=== PATIENT | female | born 1930 | race Caucasian/White ===

== ENCOUNTER → 2020-04-18 | Outpatient (CLI) | payer OTHER ==
[~2020-04-18] MED LIST: ACEDIPPM PO; ATOR10 PO; CALCAVITD PO; CALCNI; CEPH500 PO; CHOL10002 PO; Diflucan100 MG PO; LEVSOD50 PO; LISI20 PO; LISINOPRIL 40MG PO; METO50 PO; MULVITMINF PO; OMEP20ER PO; TOCO400 PO; TRIHYD5075 PO; VITAMIN C PO
[2020-04-19 20:10] LABS: Appearance, Urine Clear (Clear); Bilirubin, Urine Neg (Neg); Blood, Urine Neg (Neg); Color, Urine Yellow (P-Yellow); Glucose Qualitative, Urine Neg (Neg); Ketones, Urine Neg (Neg); Leukocyte Esterase, Urine Neg (Neg); Nitrite, Urine Neg (Neg); Protein, Urine Neg (Neg); Specific Gravity, Urine 1.015 (1.003-1.022); Urobilinogen, Urine NORM (Normal); pH, Urine 6.5 (5.0-8.0)
== END | disposition home or self-care (01) ==
LOC: LAB SHORT 19:36 → LAB 19:36
PROVIDERS: Family Medicine
DX: N39.0 Urinary tract infection, site not specified (principal)
CPT/HCPCS: 81003

== ENCOUNTER → 2020-05-27 | Outpatient (CLI) | payer OTHER ==
[~2020-05-27] MED LIST changes: +ACET325 PO; +AMLODIPINE BESYL5 MG PO; +ASPI81CH PO; +ATORVASTATIN CA10 MG PO; +Alph-E-Mixed400 UNIT PO; +BISA10S PR; +CALCITONIN SAL; +CALCIUM 600 +1 EA11 PO; +CALMOSEPTINE TOP; +CIDAFLEX TABLE1 EACH PO; +CORTISONE60 GM TOP; +DOCU100 PO; +DONE5 PO; +Hair, Skin & N1 EACH PO; +IBUP600 PO; +LETR2.5 PO; +LEVSOD25 PO; +LOPE2C PO; +MELATONIN5 M1 PO; +METO50ER PO; +MOBIC15 MG PO; +Milk Of Ma400 MG/5 M PO; +PANT40 PO; +POTA10T PO; +Prednisone10 MG PO; +SILVER SULFADIA TOP; +SODIUM PHOSPHATE PR; +TRIAMTERENE/HCTZ PO; +TUCKS1 EACH TOP; +TUMS500 MG PO; +Vitamin D2000 UNIT PO; +[UNRECOGNIZED DRUG - CODE] PO
== END | disposition home or self-care (01) ==
LOC: LAB 12:54 → LAB SHORT 12:54
DX: E07.9 Disorder of thyroid, unspecified (principal)
CPT/HCPCS: 84443

== ENCOUNTER 2020-05-31 14:31 | Inpatient (IN) | payer OTHER ==
[~2020-05-31] VITALS: Ht 152.4 cm; Wt 53.5 kg
[~2020-05-31 14:31] MED LIST changes: -ACET325 PO; -AMLODIPINE BESYL5 MG PO; -ASPI81CH PO; -ATORVASTATIN CA10 MG PO; -Alph-E-Mixed400 UNIT PO; -BISA10S PR; -CALCITONIN SAL; -CALCIUM 600 +1 EA11 PO; -CALMOSEPTINE TOP; -CIDAFLEX TABLE1 EACH PO; -CORTISONE60 GM TOP; -DOCU100 PO; -DONE5 PO; -Hair, Skin & N1 EACH PO; -IBUP600 PO; -LETR2.5 PO; -LEVSOD25 PO; -LOPE2C PO; -MELATONIN5 M1 PO; -METO50ER PO; -MOBIC15 MG PO; -Milk Of Ma400 MG/5 M PO; -PANT40 PO; -POTA10T PO; -Prednisone10 MG PO; -SILVER SULFADIA TOP; -SODIUM PHOSPHATE PR; -TRIAMTERENE/HCTZ PO; -TUCKS1 EACH TOP; -TUMS500 MG PO; -Vitamin D2000 UNIT PO; -[UNRECOGNIZED DRUG - CODE] PO
[2020-05-31 15:34] LABS: BASOPHILS ABSOLUTE AUTO 0.07 K/mm3 (0.00-0.23); BASOPHILS PERCENT AUTO 1 % (0-2); EOSINOPHILS ABSOLUTE AUTO 0.34 K/mm3 (0.00-0.68); EOSINOPHILS PERCENT AUTO 3 % (0-6); Hematocrit 43.7 % (33.0-51.0); Hemoglobin 13.8 g/dL (11.5-16.0); IMMATURE GRAN PERCENT AUTO 1 % (0-1); LYMPHOCYTES ABSOLUTE AUTO 1.38 K/mm3 (0.84-5.20); LYMPHOCYTES PERCENT AUTO 13 % (21-46); MONOCYTES ABSOLUTE AUTO 1.05 K/mm3 (0.16-1.47); MONOCYTES PERCENT AUTO 10 % (4-13); Mean Corpuscular HGB Conc 31.6 g/dL (31.5-36.5); Mean Corpuscular Volume 98 fL (80-100); NEUTROPHILS ABSOLUTE AUTO 7.58 K/mm3 (1.96-9.15); NEUTROPHILS PERCENT AUTO 72 % (41-73); Platelet Count 387 K/mm3 (150-400); RDW Coefficient Variation 14.6 % (11.7-14.2); RDW Standard Deviation 52.4 fL (35.1-46.3); Red Blood Cell Count 4.45 M/mm3 (3.80-5.20); White Blood Cell Count 10.52 K/mm3 (4.00-11.30)
[2020-05-31 15:41] LABS: Albumin, Blood 3.4 g/dL (3.4-5.0); Bilirubin, Total 0.4 mg/dL (0.1-1.0); Bun/Creatinine Ratio 32.1 (12.0-20.0); Calcium, Blood 10.3 mg/dL (8.5-10.1); Creatinine, Blood 1.59 mg/dL (0.40-1.00); Globulin, Blood 3.4 g/dL (2.2-4.0); Potassium, Blood 4.2 mmol/L (3.5-5.5); Total Protein, Blood 6.8 g/dL (6.4-8.2)
[2020-05-31] MEDS ORDERED: ASPI81CH PO (20:01)
[2020-05-31] MEDS ORDERED: AMLODIPINE BESYL5 MG PO (20:01)
[2020-05-31 20:03] LABS: Source, Urine Clean Catch
[2020-05-31 20:09] LABS: Appearance, Urine Cloudy (Clear); Bilirubin, Urine Neg (Neg); Blood, Urine 5+ (Neg); Color, Urine Brown (P-Yellow); Glucose Qualitative, Urine Neg (Neg); Ketones, Urine 1+ (Neg); Leukocyte Esterase, Urine 2+ (Neg); Nitrite, Urine Neg (Neg); Protein, Urine 2+ (Neg); Specific Gravity, Urine 1.015 (1.003-1.022); Urobilinogen, Urine 1+ (Normal)
[2020-05-31] MEDS ORDERED: ATORVASTATIN CA10 MG PO (20:20)
[2020-05-31] MEDS ORDERED: CALCIUM 600 +1 EA11 PO (20:21)
[2020-05-31] MEDS ORDERED: CALCITONIN SAL (20:21)
[2020-05-31] MEDS ORDERED: DONE5 PO (20:22)
[2020-05-31] MEDS ORDERED: LETR2.5 PO (20:22)
[2020-05-31 20:23] LABS: Bacteria Many /hpf; Hyaline Casts 0-2 /lpf (0-2); Squamous Epithelial Cells Few /hpf (Few)
[2020-05-31] MEDS ORDERED: METO50ER PO (20:23)
[2020-05-31] MEDS ORDERED: MOBIC15 MG PO (20:23)
[2020-05-31] MEDS ORDERED: LEVSOD25 PO (20:23)
[2020-05-31] MEDS ORDERED: PANT40 PO (20:23)
[2020-05-31] MEDS ORDERED: Hair, Skin & N1 EACH PO (20:23)
[2020-05-31] MEDS ORDERED: MELATONIN5 M1 PO (20:23)
[2020-05-31] MEDS ORDERED: Prednisone10 MG PO (20:24)
[2020-05-31] MEDS ORDERED: POTA10T PO (20:24)
[2020-05-31] MEDS ORDERED: Vitamin D2000 UNIT PO (20:26)
[2020-05-31] MEDS ORDERED: [UNRECOGNIZED DRUG - CODE] PO (20:26)
[2020-05-31] MEDS ORDERED: Alph-E-Mixed400 UNIT PO (20:27)
--- NOTE | 2020-06-01 01:46 | NUR ---
0017 PT ARRIVE TO ROOM FROM ER VIA MAIDA IN STABLE CONDITION. PT REPORTS BACK PAIN, WILL GIVE TYLENOL AND EVAL FOR EFFECT. PT REPORTS NAUSEA, NO NAUSE MEDS ORDERED AT THIS TIME, WILL GET SOMETHING FOR NAUSEA FOR HER AND EVAL FOR EFFECT. PT HAS SMALL SORE ON BOTTOM, TOOK PHOTO, APPLIED DRESSING. PT REPORTS SOB, ON RA AT 94%. NO OTHER APPARENT SIGNS OF DISTRESS. CALL LIGHT IS IN REACH.
--- NOTE | 2020-06-01 01:51 | NUR ---
PT LYING IN BED, AWAKE, NO APPARENT SIGNS OF DISTRESS. CALL LIGHT IS IN REACH. BED ALARM IS ON.
[2020-06-01] MEDS ORDERED: CIDAFLEX TABLE1 EACH PO (03:35)
[2020-06-01] MEDS ORDERED: TRIAMTERENE/HCTZ PO (03:39)
[2020-06-01] MEDS ORDERED: ACET325 PO (03:42)
[2020-06-01] MEDS ORDERED: BISA10S PR (03:42)
[2020-06-01] MEDS ORDERED: TUMS500 MG PO (03:43)
[2020-06-01] MEDS ORDERED: DOCU100 PO (03:43)
[2020-06-01] MEDS ORDERED: LOPE2C PO (03:44)
[2020-06-01] MEDS ORDERED: IBUP600 PO (03:44)
[2020-06-01] MEDS ORDERED: Milk Of Ma400 MG/5 M PO (03:45)
[2020-06-01] MEDS ORDERED: SODIUM PHOSPHATE PR (03:47)
[2020-06-01] MEDS ORDERED: CALMOSEPTINE TOP (03:48)
[2020-06-01] MEDS ORDERED: TUCKS1 EACH TOP (03:48)
[2020-06-01] MEDS ORDERED: CORTISONE60 GM TOP (03:49)
[2020-06-01] MEDS ORDERED: SILVER SULFADIA TOP (03:50)
--- NOTE | 2020-06-01 04:23 | NUR ---
PT LYING IN BED, EYES CLOSED, APPEARS TO BE RESTING. BREATHING IS EVEN, UNLABORED. NO APPARENT SIGNS OF DISTRESS. CALL LIGHT IS IN REACH.
--- NOTE | 2020-06-01 04:24 | NUR ---
PT IS AAO X 1-2, ON RA. REPORTS BACK PAIN, GOT TYLENOL X 1, REPORTS NAUSEA, GOT ZOFRAN X 1. HAS SMALL SORE ON BOTTOM WITH MEPLEX DRESSING, PHOTOS TAKEN. ANTIEMBOLIC STOCKINGS ARE ON.
[2020-06-01 05:10] LABS: BASOPHILS ABSOLUTE AUTO 0.03 K/mm3 (0.00-0.23); BASOPHILS PERCENT AUTO 0 % (0-2); EOSINOPHILS ABSOLUTE AUTO 0.03 K/mm3 (0.00-0.68); EOSINOPHILS PERCENT AUTO 0 % (0-6); Hematocrit 36.9 % (33.0-51.0); Hemoglobin 11.5 g/dL (11.5-16.0); IMMATURE GRAN ABSOLUTE AUTO 0.08 K/mm3 (0.00-0.10); IMMATURE GRAN PERCENT AUTO 1 % (0-1); LYMPHOCYTES ABSOLUTE AUTO 0.37 K/mm3 (0.84-5.20); LYMPHOCYTES PERCENT AUTO 4 % (21-46); MONOCYTES PERCENT AUTO 7 % (4-13); Mean Corpuscular HGB 31.1 pg (26.0-34.0); Mean Corpuscular HGB Conc 31.2 g/dL (31.5-36.5); Mean Corpuscular Volume 100 fL (80-100); NEUTROPHILS ABSOLUTE AUTO 8.19 K/mm3 (1.96-9.15); NEUTROPHILS PERCENT AUTO 87 % (41-73); Platelet Count 305 K/mm3 (150-400); RDW Coefficient Variation 14.4 % (11.7-14.2); RDW Standard Deviation 52.4 fL (35.1-46.3)
[2020-06-01 05:46] LABS: Bun/Creatinine Ratio 33.8 (12.0-20.0); Calcium, Blood 8.9 mg/dL (8.5-10.1); Creatinine, Blood 1.48 mg/dL (0.40-1.00); Potassium, Blood 4.2 mmol/L (3.5-5.5)
--- NOTE | 2020-06-01 05:55 | NUR ---
PT LYING IN BED, AWAKE, NO APPARENT SIGNS OF DISTRESS. CALL LIGHT IS IN REACH. NO OTHER CHANGES THIS SHIFT.
--- NOTE | 2020-06-01 12:10 | NUR ---
06/01/20 1210 Yuridia Dubose History, Chart, Medications and Allergies reviewed before start of procedure.Patient confirms NPO status and agrees with scheduled surgery.3-LEAD EKG REVIEWED WITH PHYSICIAN PRIOR TO START OF PROCEDURE.PATIENT DETERMINED TO BE ASA APPROPRIATE FOR PROPOFOL SEDATION PRIOR TO START OF PROCEDURE BY DR. GARCIA. MONITOR INTACT WITH CONTINUOUS PULSE OXIMETRY AND INTERMITTENT BP.
--- NOTE | 2020-06-01 13:15 | NUR ---
PT RETURNED FROM EGD, DID WELL PER REPORT. TRANSFERRED BTB. DAUGHTER AT BEDSIDE.
[2020-06-01 18:22] LABS: Hematocrit 38.3 % (33.0-51.0); Hemoglobin 12.1 g/dL (11.5-16.0)
--- NOTE | 2020-06-01 18:38 | NUR ---
SHIFT SUMMARY: PATIENT TOLERATED EGD PROCEDURE WELL, VS REMAIN STABLE. A&O X 1, PLEASANT. PROTONIX INFUSING AT 10 ML/HR PER DR. SARMIENTO. UP IN CHAIR THIS MORNING AND EVENING FOR A COUPLE OF HOURS. TOLERATED PO INTAKE FOR DINNER. C/O DISCOMFORT IN LOW BACK; PLACED K PAD WHICH GAVE RELIEF. GETTING UP TO BSC WITH 1 ASSIST. DAUGHTER AT BEDSIDE ALL DAY. IS LOOKING FORWARD TO D/C HOME TOMORROW.
--- NOTE | 2020-06-02 05:52 | NUR ---
Rn summary: Patient is quiet. Has rested well when cares are not being given. Pt breath sounds are diminished in the bases. Pt is on RA with sats 93% this am. Pt was up to BSC with 1 SBA to void about 300 cc. Pt has denied pain, heating pad remains to back. Pt continues on the protonix drip as ordered. Call light is in reach. Will continue to monitor.
--- NOTE | 2020-06-02 10:26 | NUR ---
DISCHARGE F/U APPT: [facility] STATED THEY WILL MAKE PT'S F/U APPT. WITH DR. CHARLES FOR 1 WEEK FROM DISCHARGE.
--- NOTE | 2020-06-02 11:43 | NUR ---
DISCHARGE TO ASSISTED LIVING: PT D/C'D BACK TO [facility] AT 1143 ESCORTED IN W/C BY DISCHARGE VOLUNTEER. ALL DISCHARGE INSTRUCTIONS/MEDICATIONS REVIEWED WITH PT'S DAUGHTER AT BEDSIDE. PACKET WITH D/C ORDERS, MEDICATION LIST, EMAR, AND COVID-19 TEST RESULT SENT WITH DAUGHTER FOR STAFF AT [facility]. BELONGINGS PACKED AND SENT WITH PT'S DAUGHTER. STABLE AT TIME OF DISCHARGE.
== END 2020-06-02 11:43 | disposition home or self-care (01) | DRG 379 ==
LOC: ER 14:31 → MEDS 14:32
PROVIDERS: Internal Medicine Gastroenterology; Physician Assistant; ADMIT Internal Medicine
PROC: 0DB68ZX Excision of Stomach, Via Natural or Artificial Opening Endoscopic, Diagnostic (ICD-10-PCS; principal; 2020-06-01 12:00)
PROC: 0W3P8ZZ Control Bleeding in Gastrointestinal Tract, Via Natural or Artificial Opening Endoscopic (ICD-10-PCS; 2020-06-01 12:00)
PROC: 0DB38ZZ Excision of Lower Esophagus, Via Natural or Artificial Opening Endoscopic (ICD-10-PCS; 2020-06-01 12:00)
DX: K25.4 Chronic or unspecified gastric ulcer with hemorrhage (principal); E78.5 Hyperlipidemia, unspecified; N18.30 Chronic kidney disease, stage 3 unspecified; E03.9 Hypothyroidism, unspecified; Z79.82 Long term (current) use of aspirin; I12.9 Hypertensive chronic kidney disease with stage 1 through stage 4 chronic kidney disease, or unspecified chronic kidney disease; Z66 Do not resuscitate; K22.2 Esophageal obstruction; M19.90 Unspecified osteoarthritis, unspecified site; Z79.52 Long term (current) use of systemic steroids; R82.71 Bacteriuria; Z20.828 Contact with and (suspected) exposure to other viral communicable diseases
CPT/HCPCS: 36415; 80048; 80053; 81001; 82272; 85014; 85018; 85025; 86850; 86900; 86901; 88305; 88342; 93005; 93010; 96374; 96375; 96376; 99285-25; A9270; A9270-GY; C9113; G0378; J2405; J2704; J7030; J7120; J7512; U0003

== ENCOUNTER → 2020-07-27 | Outpatient (CLI) | payer OTHER ==
[~2020-07-27] MED LIST changes: +ACET325 PO; +AMLODIPINE BESYL5 MG PO; +ASPI81CH PO; +ATORVASTATIN CA10 MG PO; +Alph-E-Mixed400 UNIT PO; +BISA10S PR; +CALCITONIN SAL; +CALCITONIN-SAL3.7 M1; +CALCIUM 600 +1 EA11 PO; +CALMOSEPTINE TOP; +CIDAFLEX TABLE1 EACH PO; +CORTISONE60 GM TOP; +DOCU100 PO; +DONE5 PO; +DULCOLAX400 MG/5 M; +FENTANYL1 EA10 TOP; +Hair, Skin & N1 EACH PO; +IBUP600 PO; +LETR2.5 PO; +LEVSOD25 PO; +LOPE2C PO; +MELATONIN5 M1 PO; +METO50ER PO; +MIRALAX119 GM PO; +MOBIC15 MG PO; +Milk Of Ma400 MG/5 M PO; +ONDA4ODT MM; +ONDA4ODT SL; +PANT40 PO; +POTA10T PO; +Percocet 5-3251 EACH PO; +Prednisone10 MG PO; +SILVER SULFADIA TOP; +SODIUM PHOSPHATE PR; +TRIAMTERENE/HCTZ PO; +TUCKS1 EACH TOP; +TUMS500 MG PO; +UNISOM PO; +VITAMIN D3; +Vitamin D2000 UNIT PO; +Zofran4 MG PO; +[UNRECOGNIZED DRUG - CODE] PO
[2020-07-29 15:49] LABS: Appearance, Urine Clear (Clear); Bilirubin, Urine Neg (Neg); Blood, Urine Neg (Neg); Color, Urine Yellow (P-Yellow); Glucose Qualitative, Urine Neg (Neg); Ketones, Urine Neg (Neg); Leukocyte Esterase, Urine Neg (Neg); Nitrite, Urine Neg (Neg); Protein, Urine 2+ (Neg); Urobilinogen, Urine NORM (Normal)
[2020-07-29 15:59] LABS: Calcium Oxalate Crystals Mod /hpf
[2020-07-29 16:00] LABS: Bacteria Rare /hpf; Red Blood Cells, Urine Not Seen /hpf (0-2); Squamous Epithelial Cells Rare /hpf (Few); White Blood Cells, Urine 0-2 /hpf (0-5)
== END | disposition home or self-care (01) ==
LOC: LAB SHORT 11:00 → LAB 11:00
PROVIDERS: Family Medicine
DX: N39.0 Urinary tract infection, site not specified (principal)
CPT/HCPCS: 81001

== ENCOUNTER → 2020-08-06 | Outpatient (CLI) | payer OTHER ==
[2020-08-06 13:15] LABS: Appearance, Urine Clear (Clear); Bilirubin, Urine Neg (Neg); Blood, Urine 4+ (Neg); Color, Urine Yellow (P-Yellow); Glucose Qualitative, Urine Neg (Neg); Ketones, Urine Neg (Neg); Leukocyte Esterase, Urine Neg (Neg); Nitrite, Urine Neg (Neg); Protein, Urine 1+ (Neg); Specific Gravity, Urine 1.015 (1.003-1.022); Urobilinogen, Urine NORM (Normal); pH, Urine 6.5 (5.0-8.0)
[2020-08-06 13:20] LABS: Squamous Epithelial Cells Few /hpf (Few)
[2020-08-06 13:21] LABS: Bacteria Few /hpf
[2020-08-06 13:22] LABS: Calcium Oxalate Crystals Rare /hpf; Transitional Epithelial Cells Few /hpf (0-Rare)
== END ==
LOC: LAB SHORT 12:38 → LAB 12:38
PROVIDERS: Family Medicine
DX: N39.0 Urinary tract infection, site not specified (principal)
CPT/HCPCS: 81001

== ENCOUNTER 2020-08-30 08:20 | Emergency (ER) | payer OTHER ==
[~2020-08-30] VITALS: Ht 160 cm; Wt 56.7 kg
[~2020-08-30 08:20] MED LIST changes: -CALCITONIN-SAL3.7 M1; -DULCOLAX400 MG/5 M; -FENTANYL1 EA10 TOP; -MIRALAX119 GM PO; -ONDA4ODT MM; -ONDA4ODT SL; -Percocet 5-3251 EACH PO; -UNISOM PO; -VITAMIN D3; -Zofran4 MG PO
[2020-08-30] MEDS ORDERED: Percocet 5-3251 EACH PO (11:25)
== END 2020-08-30 11:55 | disposition home or self-care (01) ==
LOC: ER 08:20
DX: S16.1XXA Strain of muscle, fascia and tendon at neck level, initial encounter (principal); S70.02XA Contusion of left hip, initial encounter; S70.12XA Contusion of left thigh, initial encounter; S30.0XXA Contusion of lower back and pelvis, initial encounter; E78.5 Hyperlipidemia, unspecified; E03.9 Hypothyroidism, unspecified; I12.9 Hypertensive chronic kidney disease with stage 1 through stage 4 chronic kidney disease, or unspecified chronic kidney disease; N18.30 Chronic kidney disease, stage 3 unspecified; Z79.899 Other long term (current) drug therapy; Z79.52 Long term (current) use of systemic steroids; Z88.5 Allergy status to narcotic agent; Z88.8 Allergy status to other drugs, medicaments and biological substances; Z88.1 Allergy status to other antibiotic agents; Z87.891 Personal history of nicotine dependence; W18.30XA Fall on same level, unspecified, initial encounter
CPT/HCPCS: 72040; 72100; 73502; 96374; 96375; 99283-25; A9270; J2405; J3010

== ENCOUNTER 2020-09-07 15:37 | Emergency (ER) | payer OTHER ==
[~2020-09-07] VITALS: Ht 160 cm; Wt 68.0 kg
[~2020-09-07 15:37] MED LIST changes: +Percocet 5-3251 EACH PO
[2020-09-07 16:40] LABS: BASOPHILS ABSOLUTE AUTO 0.04 K/mm3 (0.00-0.23); BASOPHILS PERCENT AUTO 0 % (0-2); EOSINOPHILS ABSOLUTE AUTO 0.01 K/mm3 (0.00-0.68); EOSINOPHILS PERCENT AUTO 0 % (0-6); Hematocrit 42.5 % (33.0-51.0); Hemoglobin 13.1 g/dL (11.5-16.0); IMMATURE GRAN ABSOLUTE AUTO 0.34 K/mm3 (0.00-0.10); IMMATURE GRAN PERCENT AUTO 2 % (0-1); LYMPHOCYTES ABSOLUTE AUTO 0.35 K/mm3 (0.84-5.20); LYMPHOCYTES PERCENT AUTO 2 % (21-46); MONOCYTES ABSOLUTE AUTO 0.55 K/mm3 (0.16-1.47); MONOCYTES PERCENT AUTO 4 % (4-13); Mean Corpuscular HGB 27.8 pg (26.0-34.0); Mean Corpuscular HGB Conc 30.8 g/dL (31.5-36.5); Mean Corpuscular Volume 90 fL (80-100); Mean Platelet Volume 8.6 fL (9.1-12.4); NEUTROPHILS ABSOLUTE AUTO 13.52 K/mm3 (1.96-9.15); NEUTROPHILS PERCENT AUTO 91 % (41-73); Platelet Count 629 K/mm3 (150-400); RDW Coefficient Variation 15.9 % (11.7-14.2); RDW Standard Deviation 53.2 fL (35.1-46.3); Red Blood Cell Count 4.72 M/mm3 (3.80-5.20); White Blood Cell Count 14.81 K/mm3 (4.00-11.30)
[2020-09-07 16:57] LABS: Albumin, Blood 2.8 g/dL (3.4-5.0); Albumin/Globulin Ratio 0.7 (0.8-1.8); Bilirubin, Total 0.4 mg/dL (0.1-1.0); Bun/Creatinine Ratio 23.5 (12.0-20.0); Calcium, Blood 9.5 mg/dL (8.5-10.1); Creatinine, Blood 1.15 mg/dL (0.40-1.00); Globulin, Blood 4.1 g/dL (2.2-4.0); Potassium, Blood 4.7 mmol/L (3.5-5.5); Total Protein, Blood 6.9 g/dL (6.4-8.2)
[2020-09-07] MEDS ORDERED: ONDA4ODT MM (18:10)
[2020-09-07] MEDS ORDERED: Zofran4 MG PO (20:02)
== END 2020-09-07 20:02 | disposition home or self-care (01) ==
LOC: ER 15:37
PROVIDERS: Emergency Medicine
DX: K59.00 Constipation, unspecified (principal); I12.9 Hypertensive chronic kidney disease with stage 1 through stage 4 chronic kidney disease, or unspecified chronic kidney disease; N18.30 Chronic kidney disease, stage 3 unspecified; E78.5 Hyperlipidemia, unspecified; E03.9 Hypothyroidism, unspecified; Z79.52 Long term (current) use of systemic steroids; Z79.899 Other long term (current) drug therapy; Z88.5 Allergy status to narcotic agent; Z88.8 Allergy status to other drugs, medicaments and biological substances; Z88.1 Allergy status to other antibiotic agents; Z87.891 Personal history of nicotine dependence
CPT/HCPCS: 36415; 74018; 80053; 83690; 85025; 93005; 93010; 99284-25; A9270

== ENCOUNTER 2020-10-31 09:51 | Emergency (ER) | payer OTHER ==
[~2020-10-31] VITALS: Ht 160 cm; Wt 52.2 kg
[~2020-10-31 09:51] MED LIST changes: +ONDA4ODT MM; +Zofran4 MG PO
[2020-10-31] MEDS ORDERED: CALCITONIN-SAL3.7 M1 (10:14)
[2020-10-31] MEDS ORDERED: METO50 PO (10:15)
[2020-10-31] MEDS ORDERED: MIRALAX119 GM PO (10:16)
[2020-10-31] MEDS ORDERED: FENTANYL1 EA10 TOP (13:26)
== END 2020-10-31 13:49 | disposition home or self-care (01) ==
LOC: ER 09:51
DX: S16.1XXA Strain of muscle, fascia and tendon at neck level, initial encounter (principal); S09.90XA Unspecified injury of head, initial encounter; I12.9 Hypertensive chronic kidney disease with stage 1 through stage 4 chronic kidney disease, or unspecified chronic kidney disease; N18.30 Chronic kidney disease, stage 3 unspecified; E78.5 Hyperlipidemia, unspecified; E03.9 Hypothyroidism, unspecified; Z79.899 Other long term (current) drug therapy; Z87.891 Personal history of nicotine dependence; W01.10XA Fall on same level from slipping, tripping and stumbling with subsequent striking against unspecified object, initial encounter
CPT/HCPCS: 70450; 72125; 72128; 96374; 99284-25; A9270; J3010

== ENCOUNTER → 2020-11-04 | Outpatient (CLI) | payer OTHER ==
[~2020-11-04] MED LIST changes: +CALCITONIN-SAL3.7 M1; +DULCOLAX400 MG/5 M; +FENTANYL1 EA10 TOP; +MIRALAX119 GM PO; +ONDA4ODT SL; +UNISOM PO; +VITAMIN D3
== END | disposition home or self-care (01) ==
LOC: LAB 08:22 → LAB SHORT 08:22
DX: N39.0 Urinary tract infection, site not specified (principal)
CPT/HCPCS: 87086

== ENCOUNTER 2020-11-16 18:25 | Emergency (ER) | payer OTHER ==
[~2020-11-16] VITALS: Ht 160 cm; Wt 49.9 kg
[~2020-11-16 18:25] MED LIST changes: -DULCOLAX400 MG/5 M; -ONDA4ODT SL; -UNISOM PO; -VITAMIN D3
[2020-11-16] MEDS ORDERED: DOCU100 PO (20:12)
[2020-11-16] MEDS ORDERED: UNISOM PO (20:20)
[2020-11-16] MEDS ORDERED: VITAMIN D3 (20:20)
[2020-11-16] MEDS ORDERED: BISA10S PR (20:23)
[2020-11-16] MEDS ORDERED: DULCOLAX400 MG/5 M (20:28)
[2020-11-16] MEDS ORDERED: ONDA4ODT SL (20:34)
[2020-11-16] MEDS ORDERED: Percocet 5-3251 EACH PO (20:34)
== END 2020-11-16 21:50 | disposition home or self-care (01) ==
LOC: ER 18:25
DX: K59.00 Constipation, unspecified (principal); M48.54XA Collapsed vertebra, not elsewhere classified, thoracic region, initial encounter for fracture; I10 Essential (primary) hypertension; E78.5 Hyperlipidemia, unspecified; E03.9 Hypothyroidism, unspecified; Z87.891 Personal history of nicotine dependence; Z79.52 Long term (current) use of systemic steroids; Z79.899 Other long term (current) drug therapy; Z88.5 Allergy status to narcotic agent; Z88.8 Allergy status to other drugs, medicaments and biological substances
CPT/HCPCS: 74018; 99284-25; A9270